=== PATIENT | female | born 1975 | race Caucasian/White ===

== ENCOUNTER 2024-10-20 16:19 | Emergency (ER) | payer OTHER, SELFPAY ==
[2024-10-20] MEDS ORDERED: METOCLOPRAMIDE 10 MG/2mL INJ ONE (17:03)
[2024-10-20] MEDS ORDERED: KETOROLAC 30 MG/ML INJ ONE (17:03)
[2024-10-20] MEDS ORDERED: DIPHENHYDRAMINE 50 MG/ML VIAL ONE (17:03)
[2024-10-20] MEDS ORDERED: NA CHLORIDE 0.9% 1,000 ML ONE (17:03)
[2024-10-20] MEDS ORDERED: NA CHLORIDE 0.9% 50 ML ONE (17:03)
--- NOTE | 2024-10-20 17:44 | RAD REPORT ---
EXAM: CT Head Brain Wo Cont HISTORY: HEADACHE COMPARISON: None TECHNIQUE: Multiple contiguous axial images were obtained for a CT of the brain without contrast. Sag ittal and coronal reformats were performed. One or more of the following dose reduction techniques were used: Automated exposure control, adjus tment of the mA and kV according to patient size, and iterative reconstruction. Unless otherwise specified, incidental findings do not require dedicated imaging follow-up. FINDINGS: No evidence of hydrocephalus, intracranial hemorrhage, or extra-axial fluid collection. The brain is normal in morphology. The calvarium is intact. The visualized paranasal sinuses show mild scattered inflammatory mucosal th ickening. Mastoid air cells are essentially clear. IMPRESSION: No evidence of acute intracranial abnormality.
--- NOTE | 2024-10-20 17:58 | EDPHYS ---
Physician Documentation [facility] Name: Zuri Paz Age: 49 yrs Sex: Female : 1975 Arrival Date: 10/20/2024 Time: 16:19 Bed 16 Private MD: ED Physician Robbie Cruz HPI: 10/20 17:04 This 49 yrs old Female presents to ER via Ambulatory with complaints of Migraine. sb4 17:04 Patient reports a migraine that began about 3 days ago. She states that it is not sb4 getting better despite using sumatriptan. She does report a history of migraines, gets them every few months. States this feels like her prior migraines but is just more severe. Reports associated sensitivity to light and noise. Feels nauseated, has not vomited. No dizziness or blurry vision. Historical: - Allergies: 16:44 No Known Allergies; cm10 - PMHx: 16:44 Migraine; cm10 - Immunization history:: Adult Immunizations up to date. - Infectious Disease History:: Denies. - Social history:: Smoking status: Patient reports the use of cigarette tobacco products, smokes one-half pack cigarettes per day. ROS: 17:04 Constitutional: Negative for fever, chills, and weight loss, sb4 17:04 Neuro: Positive for headache, 17:04 All other systems are negative, Exam: 17:04 Head/Face: Normocephalic, atraumatic. Eyes: Extra-ocular motions intact. Periorbital sb4 areas with no swelling, redness, or edema. ENT: Mucous membranes moist. Cardiovascular: Regular rate and rhythm with a normal S1 and S2. Respiratory: No increased work of breathing, no retractions or nasal flaring. Skin: Warm, dry with normal turgor. Normal color with no rashes, no lesions, and no evidence of cellulitis. MS/ Extremity: Pulses equal, no cyanosis. Neurovascular intact. Full, normal range of motion. Neuro: Awake and alert, GCS 15, oriented to person, place, time, and situation. Motor strength 5/5 in all extremities. Sensory grossly intact. 17:04 Constitutional: The patient appears alert, awake, in obvious pain, uncomfortable, Vital Signs: 16:43 BP 170 / 116; Pulse 96; Resp 19; Temp 97.4(TE); Pulse Ox 100% on R/A; Weight 63.5 kg; cm10 Height 5 ft. 1 in. ; Pain 10/10; 17:30 BP 149 / 100; Pulse 84; Resp 16; Pulse Ox 100% ; db 18:00 BP 138 / 101; Pulse 92; Resp 16; Pulse Ox 99% ; db 16:43 Body Mass Index 26.45 (63.50 kg, 154.94 cm) cm10 16:43 Pain Scale: Adult cm10 Anaya Coma Score: 17:47 Eye Response: spontaneous(4). Motor Response: obeys commands(6). Verbal Response: sb4 oriented(5). Total: 15. MDM: 16:45 Medical Screening Exam initiated sb4 17:47 Data reviewed: vital signs, nurses notes, radiologic studies, and as a result, I will sb4 discharge patient. Counseling: I had a detailed discussion with the patient and/or guardian regarding the historical points, exam findings, and any diagnostic results supporting the discharge/admit diagnosis, the presence of at least one elevated blood pressure reading (>120/80) during this emergency department visit, radiology results, the need for outpatient follow up, for definitive care, to return to the emergency department if symptoms worsen or persist or if there are any questions or concerns that arise at home. 10/20 16:45 Order name: Head Brain Wo Cont CT; Complete Time: 17:45 sb4 10/20 16:45 Order name: IV Start; Complete Time: 17:22 sb4 Administered Medications: 17:12 Drug: NS 0.9% IV 1000 ml IV at 1000 ml once; to be given as a bolus over 60 minutes db Route: IV; Rate: 1000 ml; Site: left antecubital; 18:16 Follow up: Response: No adverse reaction; IV Status: Completed infusion; IV Intake: db 1000ml 17:12 Drug: Ketorolac IVP 15 mg IVP once Route: IVP; Site: left antecubital; db 18:17 Follow up: Response: No adverse reaction db 17:12 Drug: metoCLOPramide IVP 10 mg IVP once; over 1 to 2 minutes Route: IVP; Site: left db antecubital; 18:17 Follow up: Response: No adverse reaction db 17:12 Drug: diphenhydrAMINE IVP 25 mg IVP once Route: IVP; Site: left antecubital; db 18:16 Follow up: Response: No adverse reaction db Disposition: 18:56 Co-signature as Attending Physician, Robbie Cruz MD I reviewed the patient's care rn provided by the Advanced Practice Provider and agree with the diagnosis and treatment plan. Disposition Summary: 10/20/24 17:57 Discharge Ordered Notes: Location: Home sb4 Problem: new sb4 Symptoms: have improved sb4 Condition: Stable sb4 Diagnosis - Migraine without aura, not intractable sb4 Followup: sb4 - With: Emergency Department - When: As needed - Reason: Trouble breathing, Worsening of condition Discharge Instructions: - Discharge Summary Sheet sb4 - Migraine Headache, [id number] sb4 Forms: - Patient Portal Instructions sb4 - Leadership Thank You Letter sb4 Signatures: Dispatcher [employer] EDRobbie Amaya MD MD rn Benton, Danielle RN RN Karena Toure PA-C PASandra sb4 Sara Vasquez RN RN cm10 Corrections: (The following items were deleted from the chart) 16:45 16:44 Social history: Smoking status: Patient reports the use of cigarette tobacco cm10 products, denies chronic smoking, but will smoke occasionally, cm10
--- NOTE | 2024-10-20 17:58 | ER ---
Nurse's Notes [facility] Name: Zuri Paz Age: 49 yrs Sex: Female : 1975 Arrival Date: 10/20/2024 Time: 16:19 Bed 16 Private MD: Diagnosis: Migraine without aura, not intractable Presentation: 10/20 16:43 Chief complaint: Patient states: Migraine X2 days. Pt reports taking medication with no cm10 relief. Pt reports light sensitivity. Coronavirus screen: Client denies travel out of the [place] in the last 14 days. Ebola Screen: Patient denies travel to an Ebola-affected area in the 21 days before illness onset. No symptoms or risks identified at this time. Initial Sepsis Screen: Does the patient meet any 2 criteria? HR > 90 bpm. Does the patient have a suspected source of infection? No. Patient's initial sepsis screen is negative. Risk Assessment: Do you want to hurt yourself or someone else? Patient reports no desire to harm self or others. Onset of symptoms was October 20, 2024. 16:43 Method Of Arrival: Ambulatory cm10 16:43 Acuity: ALVARO 3 cm10 Triage Assessment: 16:45 General: Appears in no apparent distress. comfortable, Behavior is calm, cooperative, cm10 appropriate for age. Neuro: No deficits noted. Level of Consciousness is awake, alert, obeys commands, Oriented to person, place, time, situation, Appropriate for age. Respiratory: No deficits noted. Airway is patent Respiratory effort is even, unlabored, Respiratory pattern is regular, symmetrical. Historical: - Allergies: 16:44 No Known Allergies; cm10 - PMHx: 16:44 Migraine; cm10 - Immunization history:: Adult Immunizations up to date. - Infectious Disease History:: Denies. - Social history:: Smoking status: Patient reports the use of cigarette tobacco products, smokes one-half pack cigarettes per day. Screenin:24 [facility] ED Fall Risk Assessment (Adult) History of falling in the last 3 months, db including since admission No falls in past 3 months (0 pts) Confusion or Disorientation No (0 pts) Intoxicated or Sedated No (0 pts) Impaired Gait No (0 pts) Mobility Assist Device Used No (0 pt) Altered Elimination No (0 pt) Score/Fall Risk Level 0 - 2 = Low Risk Oriented to surroundings, Maintained a safe environment. Abuse screen: Denies threats or abuse. Denies injuries from another. Nutritional screening: No deficits noted. Tuberculosis screening: No symptoms or risk factors identified. Assessment: 17:10 Reassessment: Patient appears in no apparent distress at this time. Patient and/or db family updated on plan of care and expected duration. Pain level reassessed. Patient is alert, oriented x 3, equal unlabored respirations, skin warm/dry/pink. General: Appears in no apparent distress. uncomfortable, Behavior is calm, cooperative. Pain: Complains of pain in head. Neuro: Level of Consciousness is awake, alert, obeys commands, Oriented to person, place, time, situation, Reports headache. Respiratory: Airway is patent Respiratory effort is even, unlabored, Respiratory pattern is regular, symmetrical. 18:15 Reassessment: Patient appears in no apparent distress at this time. Patient and/or db family updated on plan of care and expected duration. Pain level reassessed. Patient is alert, oriented x 3, equal unlabored respirations, skin warm/dry/pink. Patient states feeling better. Patient states symptoms have improved. Vital Signs: 16:43 BP 170 / 116; Pulse 96; Resp 19; Temp 97.4(TE); Pulse Ox 100% on R/A; Weight 63.5 kg; cm10 Height 5 ft. 1 in. ; Pain 10/10; 17:30 BP 149 / 100; Pulse 84; Resp 16; Pulse Ox 100% ; db 18:00 BP 138 / 101; Pulse 92; Resp 16; Pulse Ox 99% ; db 16:43 Body Mass Index 26.45 (63.50 kg, 154.94 cm) cm10 16:43 Pain Scale: Adult cm10 Anaya Coma Score: 17:47 Eye Response: spontaneous(4). Motor Response: obeys commands(6). Verbal Response: sb4 oriented(5). Total: 15. ED Course: 16:22 Patient arrived in ED. ra3 16:23 Karena Steven PA-C is PHCP. sb4 16:23 Robbie Cruz MD is Attending Physician. sb4 16:44 Triage completed. cm10 16:45 Arm band placed on right wrist. Patient placed in an exam room, on a stretcher. cm10 16:[address] Head Brain Wo Cont CT In Process Unspecified. EDMS 17:12 Inserted saline lock: 20 gauge in left antecubital area, using aseptic technique. Blood db collected. Flushed with 10 mL NS. 17:22 Cristina Lindsey, RN is Primary Nurse. db 17:24 Patient has correct armband on for positive identification. Bed in low position. Call db light in reach. Side rails up X 1. Pulse ox on. NIBP on. Warm blanket given. Pillow given. 18:16 Provided Education on: DISCHARGE AND FOLLOWUP. db 18:16 No provider procedures requiring assistance completed. IV discontinued, intact, db bleeding controlled, No redness/swelling at site. Administered Medications: 17:12 Drug: NS 0.9% IV 1000 ml IV at 1000 ml once; to be given as a bolus over 60 minutes db Route: IV; Rate: 1000 ml; Site: left antecubital; 18:16 Follow up: Response: No adverse reaction; IV Status: Completed infusion; IV Intake: db 1000ml 17:12 Drug: Ketorolac IVP 15 mg IVP once Route: IVP; Site: left antecubital; db 18:17 Follow up: Response: No adverse reaction db 17:12 Drug: metoCLOPramide IVP 10 mg IVP once; over 1 to 2 minutes Route: IVP; Site: left db antecubital; 18:17 Follow up: Response: No adverse reaction db 17:12 Drug: diphenhydrAMINE IVP 25 mg IVP once Route: IVP; Site: left antecubital; db 18:16 Follow up: Response: No adverse reaction db Medication: 18:16 VIS not applicable for this client. db Intake: 18:16 IV: 1000ml; Total: 1000ml. db Outcome: 17:57 Discharge ordered by MD. diaz 18:16 Discharged to home ambulatory, with family, db 18:16 Condition: stable 18:16 Discharge instructions given to patient, family, Instructed on discharge instructions, follow up and referral plans. 18:17 Patient left the ED. db Signatures: Dispatcher [employer] EDPA Cristina Lindsey, RN RN Karena Toure, PA-C PASebastianC [email or web address] Sara Vasquez RN RN cm10 Romelia Lucero ra3 Corrections: (The following items were deleted from the chart) 16:45 16:44 Social history: Smoking status: Patient reports the use of cigarette tobacco cm10 products, denies chronic smoking, but will smoke occasionally, cm10
[2024-10-21 17:01] VITALS: BP 138/101; TEMP 97.4; O2SAT 99
== END 2024-10-20 18:17 | disposition home or self-care (01) ==
LOC: ER 16:19
DX: G43.009 Migraine without aura, not intractable, without status migrainosus (principal)
CPT/HCPCS: 96361; 70450; 96375; 96374; 99284; J2765; J1200; J7030

== ENCOUNTER 2025-01-25 16:11 | Emergency (ER) | payer OTHER ==
--- OUTSIDE RECORDS SUMMARY | 2025-01-25 16:15 | XMS REPORT | Continuity of Care Document ---
Author Name Unknown Address [address] [place] [address] [address] [place] [address] [facility] Address [address] [facility]. [address] [place] [address] Care Team Providers Care Architectural Drafter Name Role Phone Robyn Dean Attending Clinician Unavail able TABITHA ORLANDO Attending Clinician Unavailable FORD GARAZ Attending Clinician Unavailab IRA Correa Attending Clinician Unavailab HUE Mayorga Attending Clinician Unavailable MALINA Attending Clinician Unavailable MD SILVINA Attending Clinician Unavailab MICHAEL Hogue Attending Clinician UnavailHUGH Rodriguez Attending Clinician CHELSI Leonardo Attending Clinician Unavailab MISSY Fish Attending Clinician Unavailable JOSE NEGRON Attending Clinician Unavailable CONY BROWN Attending Clinician Unavailab le LAB90 Attending Clinician Unavailable [id number] Attending Clinician Unavailable 39, HOLTER Attending Clinician Unavailable Payers Payer Name Policy Type Policy Number Effective Date Expirati on Date Source [employer] GIOV[employer]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[employer] 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 9 [id number] 2023 00:00:00 Problems Condition Name Condition Details Condition Category Status Onset Date Resolution Date Last Treatment Date Treating Clinician Comments Source Mild major depression Mild major depression Disease Active 11-22 00:00: 00 Beckie Seybold - Externa l Palpitatio ns Palpitatio ns Disease Active 11-08 00:00: 00 Beckie Seybold - Externa l Current every day smoker Current every day smoker Disease Active 11-08 00:00: 00 Beckie Seybold - Externa l Primary hypertensi on Primary hypertensi on Disease Active 11-08 00:00: 00 Becike Pollarda l Social History Social Habit Start Date Stop Date Quantity Comments Source Sexual orientation 2022-11-08 05:43:24 Heterosexual (finding) Beckie Murphy - External History of tobacco use Cigarette Smoker Beckie vazquez - External Alcoholic beverage intake 2024-04-30 00:00:00 2024-04-30 00:00:00 2 /d Beckie Murphy - External Alcohol intake 2023-12-07 00:00:00 2023-12-07 00:00:00 2 /d Beckie Murphy - External History of Social function 2022-12-15 00:00:00 2022-12-15 00:00:00 Beckie Murphy - External Tobacco use and exposure 2022-11-24 00:00:00 2022-11-24 00:00:00 Smokeless tobacco non-user Beckie Murphy - External Sex [birth year] at 1975 00:00:00 1975 00:00:00 F Beckie Murphy - External Smoking Status Start Date Stop Date Source Smokes tobacco daily 2022-11-24 00:00:00 Beckie Murphy - External Medications Ordered Medication Name Filled Medication Name Start Date Stop Date Current Medication? Ordering Clinician Indication Dosage Frequency Signature (SIG) Comments Components Source Metronidazo le 500 MG oral Tablet 04-30 00:00: 00 Yes [id number] 500mg Q.5D Take 1 tablet (500 mg total) by mouth 2 times daily. Beckie mccabe Diclofenac Sodium CR 100 MG oral TABLET SR 24 HR 03-10 00:00: 00 Yes One QD PRN, do not combine with other antiinflam matories, take with food. Beckie mccabe Naratriptan HCl 1 MG oral Tablet 03-10 00:00: 00 Yes 1 mg at onset of headache, may repeat in 4 hours if needed, up to 2 pills pr 24 hours. Beckie mccabe Magnesium 500 MG oral Tablet 03-10 00:00: 00 Yes One QHS. Beckie mccabe Sumatriptan Succinate 100 MG oral Tablet 3-10 00:00: 00 03-10 00:00 :00 No [id number] 100mg Take 1 tablet (100 mg total) by mouth once as needed for migraine (May repeat in 2 hours if unresolved . Do not exceed 200 mg in 24 hours.). Beckie mccabe Sumatriptan Succinate 100 MG oral Tablet 2-15 00:00: 00 Yes [id number] 100mg Take 1 tablet (100 mg total) by mouth once as needed for migraine (May repeat in 2 hours if unresolved . Do not exceed 200 mg in 24 hours.). Beckie mccabe Ondansetron HCl 4 MG oral Tablet 2-15 00:00: 00 Yes [id number] 4mg [id number] 3D Take 1 tablet (4 mg total) by mouth every 8 hours as needed for nausea. Beckie mccabe Diclofenac Sodium 75 MG oral Tablet Delayed Response 5-18 00:00: 00 11-22 00:00 :00 No TAKE 1 TABLET BY MOUTH TWICE A DAY Beckie mccabe NYSTATIN EX 3-16 00:00: 00 11-22 00:00 :00 No SWISH AND SPIT 5ML BY MOUTH EVERY 4 HOURS NEEDED Beckie mccabe Maalox, Lidocaine Viscous HCl, Nystatin (Magic Mouthwash-E qual Ratio) 3-14 00:00: 00 11-22 00:00 :00 No [id number] 07 5mL Q4H Swish and spit 5 mL every 4 hours as needed Beckie mccabe Ivabradine HCl 5 MG oral Tablet 3-11 00:00: 00 11-22 00:00 :00 No 1{tbl} Take 1 tablet by mouth 2 times daily Beckie mccabe hydroCHLORO thiazide 12.5 MG oral Capsule 0 3-10 00:00: 00 Yes [id number] 12.5mg Take 1 capsule (12.5 mg total) by mouth daily Beckie mccabe Maalox, Lidocaine Viscous HCl, Nystatin (Magic Mouthwash-E qual Ratio) 3- 00:00: 00 Yes [id number] 07 5mL Q4H Swish and spit 5 mL every 4 hours as needed Beckie mccabe hydroCHLORO thiazide 12.5 MG oral Capsule 3- 00:00: 00 12-15 00:00 :00 No [id number] TAKE 1 CAPSULE BY MOUTH EVERY DAY Beckie mccabe methylPREDN ISolone (Medrol) 4 MG oral Tablet Therapy Pack 11-21 00:00: 00 Yes 1{olga} Take 1 olga by mouth See Admin Instructio ns Use as directed. Beckie mccabe Diclofenac Sodium 75 MG oral Tablet Delayed Response 11-21 00:00: 00 Yes 75mg Take 1 tablet (75 mg total) by mouth 2 times daily Beckie mccabe methylPREDN ISolone (Medrol) 4 MG oral Tablet Therapy Pack 11-21 00:00: 00 11-22 00:00 :00 No 1{olga} Take 1 olga by mouth See Admin Instructio ns Use as directed. Beckie mccabe Ciprofloxac in HCl (Cipro) 500 MG oral Tablet 11-14 00:00: 00 11-22 05:59 :00 No [id number] 500mg Take 1 tablet (500 mg total) by mouth 2 times daily for 7 days Beckie mccabe Sumatriptan Succinate (Imitrex) 25 MG oral Tablet 2-04 00:00: 00 11-22 00:00 :00 No [id number] 25mg Take 1 tablet (25 mg total) by mouth every 2 hours as needed for migraine (Do) Not to exceed 2 doses in 24 hours. Beckie mccabe Nitrofurant oin Monohyd Macro (Macrobid) 100 MG oral Capsule - 00:00: 00 Yes [id number] 100mg Take 1 capsule (100 mg total) by mouth 2 times daily Beckie mccabe Sumatriptan Succinate (Imitrex) 25 MG oral Tablet 11-08 11:02: 25 Yes 25mg Take 25 mg by mouth every 2 hours as needed for migraine Beckie mccabe hydroCHLORO thiazide 12.5 MG oral Capsule 11-08 00:00: 00 Yes [id number] 12.5mg Take 1 capsule (12.5 mg total) by mouth daily Beckie mccabe Immunizations Ordered Immunization Name Filled Immunization Name Date Status Comments Source MMR- Measles, Mumps, Rubella 2019-03-23 00:00:00 Completed Beckie Cartagenaold - External MMR- Measles, Mumps, Rubella 2019-03-23 00:00:00 Completed Beckie Cartagenaold - External MMR- Measles, Mumps, Rubella 2019-03-23 00:00:00 Completed Beckie Banksybold - External Rho D 2019-03-22 00:00:00 Completed Beckie Murphy - External Tdap- (Boostrix, Adacel) 2019-03-22 00:00:00 Completed Beckie Cartagenaold - External Rho D 2019-03-22 00:00:00 Completed Beckie Cartagenaold - External Tdap- (Boostrix, Adacel) 2019-03-22 00:00:00 Completed Beckie Banksybold - External Rho D 2019-03-22 00:00:00 Completed Beckie Banksybold - External Tdap- (Boostrix, Adacel) 2019-03-22 00:00:00 Completed Beckie Murphy - External Rho D Unknown Completed Beckie ferrell - External MMR- Measles, Mumps, Rubella Unknown Completed Beckie Banksybol d - External Tdap- (Boostrix, Adacel) Unknown Completed Beckie Cratagenaold - External Rho D Unknown Completed Beckie Greenfield bold - External MMR- Measles, Mumps, Rubella Unknown Completed Beckie Seybol d - External Tdap- (Boostrix, Adacel) Unknown Completed Beckie Banksybold - External Rho D Unknown Completed Beckie Greenfield bold - External MMR- Measles, Mumps, Rubella Unknown Completed Beckie Banksybol d - External Tdap- (Boostrix, Adacel) Unknown Completed Beckie Cartagenaold - External Rho D Unknown Completed Beckie Greenfield bold - External MMR- Measles, Mumps, Rubella Unknown Completed Beckie Solis d - External Tdap- (Boostrix, Adacel) Unknown Completed Beckie Murphy - External Vital Signs Vital Name Observation Time Observation Value Comments S ourchase Systolic blood pressure 2024-03-10 18:42:00 134 mm[Hg] did retake BP on machine. per patient states she did not take BP medication today 03-10-2024. Beckie Banksybold - External Diastolic blood pressure 2024-03-10 18:42:00 92 mm[Hg] did retake BP on machine. per patient states she did not take BP medication today 03-10-2024. Beckie Banksybold - External Heart rate 2024-03-10 18:42:00 103 /min Beckie Banksybold - External Respiratory rate 2024-03-10 18:38:00 16 /min Beckie Banksybold - External Body height 2024-03-10 18:38:00 154.9 cm Beckie Banksybold - External Body weight 2024-03-10 18:38:00 63.685 kg Beckie Banksybold - External BMI 2024-03-10 18:38:00 26.53 kg/m2 Beckie Banksybold - External Systolic blood pressure 2023-12-07 16:23:00 138 mm[Hg] Beckie Seybold - External Diastolic blood pressure 2023-12-07 16:23:00 88 mm[Hg] Beckie Banksybold - External Heart rate 2023-12-07 16:23:00 88 /min Beckie Banksybold - External Body temperature 2023-12-07 16:23:00 36.89 Niki Beckie Seybold - External Respiratory rate 2023-12-07 16:23:00 22 /min Beckie Banksybold - External Body height 2023-12-07 16:23:00 154.9 cm Beckie Banksybold - External Body weight 2023-12-07 16:23:00 65.681 kg Beckie Seybold - External BMI 2023-12-07 16:23:00 27.36 kg/m2 Beckie Banksybold - External Systolic blood pressure 2023-11-22 14:50:00 144 mm[Hg] Beckie Seybold - External Diastolic blood pressure 2023-11-22 14:50:00 94 mm[Hg] Beckie Seybold - External Heart rate 2023-11-22 14:50:00 98 /min Beckie Seybold - External Body temperature 2023-11-22 14:50:00 36 Niki Beckie Seybold - External Respiratory rate 2023-11-22 14:50:00 14 /min Beckie Seybold - External Body height 2023-11-22 14:50:00 154.9 cm Beckie Seybold - External Body weight 2023-11-22 14:50:00 65.318 kg Beckie Seybold - External BMI 2023-11-22 14:50:00 27.21 kg/m2 Beckie Seybold - External Systolic blood pressure 2022-12-15 20:36:00 134 mm[Hg] Beckie Seybold - External Diastolic blood pressure 2022-12-15 20:36:00 90 mm[Hg] Beckie Seybold - External Heart rate 2022-12-15 20:36:00 100 /min Beckie Seybold - External Body temperature 2022-12-15 20:36:00 37.06 Niki Beckie Seybold - External Body height 2022-12-15 20:36:00 154.9 cm Beckie Seybold - External Body weight 2022-12-15 20:36:00 61.689 kg Beckie Seybold - External BMI 2022-12-15 20:36:00 25.70 kg/m2 Beckie Seybold - External Oxygen saturation in Arterial blood by Pulse oximetry 2022-12-15 20:36:00 97 /min Beckie Seybold - External Body height 2022-11-21 19:46:00 154.9 cm Beckie Seybold - External Body weight 2022-11-21 19:46:00 63.504 kg Beckie Seybold - External BMI 2022-11-21 19:46:00 26.45 kg/m2 Beckie Seybold - External Systolic blood pressure 2022-11-08 16:54:00 148 mm[Hg] Beckie Seybold - External Diastolic blood pressure 2022-11-08 16:54:00 92 mm[Hg] Beckie Seybold - External Heart rate 2022-11-08 16:54:00 121 /min Beckie Murphy - External Body temperature 2022-11-08 16:54:00 36.39 Niki Beckie Murphy - External Respiratory rate 2022-11-08 16:54:00 14 /min Beckie Murphy - External Body height 2022-11-08 16:54:00 154.9 cm Beckie Murphy - External Body weight 2022-11-08 16:54:00 63.504 kg Beckie Murphy - External BMI 2022-11-08 16:54:00 26.45 kg/m2 Beckie Murphy - External Encounters Start Date/Time End Date/Time Encounter Type Admission Type Attending [facility] Care Department Encounter ID Source 2024-12-30 14:01:00 Outpatient Robyn Dean [facility] [id number] [facility] 2024-12-04 09:43:01 Outpatient Robyn Dean [facility] [id number] [facility] 2024-07-11 00:00:00 2024-07-11 00:00:00 Outpatient TABITHA ORLANDO [id number] [facility] 2024-06-25 00:00:00 2024-06-25 00:00:00 Outpatient TABITHA ORLANDO [id number] [facility] 2024-05-16 11:00:00 2024-05-16 11:00:00 Outpatient FORD GARZA [id number] [facility] 2024-05-15 14:00:00 2024-05-15 14:00:00 Outpatient IRA DE SATNIAGO [id number] [facility] 2024-04-30 12:15:00 2024-04-30 12:15:00 Outpatient HUE [facility]ERNÁNDEZ [id number] [facility]24-04-30 00:00:00 2024-04-30 00:00:00 Outpatient IRA DE SANTIAGO [id number] [facility] 2024-04-29 00:00:00 2024-04-29 00:00:00 Outpatient MALINA BECKIE MCKINNON [id number] [facility] 2024-03-10 14:15:00 2024-03-10 14:15:00 Outpatient FORD GARZA BECKIE MCKINNON [id number] [facility] 2024-02-13 00:00:00 2024-02-13 00:00:00 Outpatient MD BECKIE NARANJO [id number] [facility] 2024-01-07 09:15:00 2024-01-07 09:15:00 Outpatient FORD GARZA BECKIE MCKINNON [id number] [facility] 2023-12-21 11:15:00 2023-12-21 11:15:00 Outpatient ALIREZACRISTOPHERMICHAEL [place] [id number] [facility]ie [facility] 2023-12-20 09:00:00 2023-12-20 09:00:00 [facility]patient IRA [facility]AG[facility] [id number] [facility]23-12-13 00:00:00 2023-12-13 00:00:00 Outpatient IRA DE SANTIAGO [id number] [facility] 2023-12-10 13:00:00 2023-12-10 13:00:00 Outpatient BECKIE MCKINNON [id number] [facility] 2023-12-07 10:30:00 2023-12-07 10:30:00 Outpatient MICHAEL KAUR [id number] [facility] 2023-12-07 00:00:00 2023-12-07 00:00:00 Outpatient IRA DE SANTIAGO [id number] [facility] 2023-12-07 00:00:00 2023-12-07 00:00:00 Outpatient MD BECKIE NARANJO [id number] [facility] 2023-11-26 09:30:00 2023-11-26 09:30:00 Outpatient HUGH DENTON [id number] [facility] 2023-11-23 15:15:00 2023-11-23 15:15:00 Outpatient BECKIE MCKINNON [id number] [facility] 2023-11-22 09:30:00 2023-11-22 09:30:00 Outpatient IRA DE SANTIAGO BECKIE MCKINNON [id number] [facility] 2023-11-13 15:30:00 2023-11-13 15:30:00 Outpatient HUGH DENTON BECKIE MCKINNON [id number] [facility] 2023-09-12 00:00:00 2023-09-12 00:00:00 Outpatient TABITHA ORLANDO BECKIE MCKINNON [id number] [facility] 2023-07-02 13:00:00 2023-07-02 13:00:00 Outpatient CHELSI VILLAFANA [id number] [facility] 2023-03-15 14:20:00 2023-03-15 14:20:00 Outpatient CHELSI VILLAFANA [id number] [facility] 2023-02-22 00:00:00 2023-02-22 00:00:00 Outpatient MISSY DURBIN [id number] [facility] 2023-02-15 15:30:00 2023-02-15 15:30:00 Outpatient JOSE NEGRON [id number] [facility] 2023-01-09 14:20:00 2023-01-09 14:20:00 Outpatient MISSY DURBIN [id number] [facility] 2023-01-04 00:00:00 2023-01-04 00:00:00 Outpatient JOSE NEGRON [id number] [facility] 2022-12-25 00:00:00 2022-12-25 00:00:00 Outpatient BECKIE MCKINNON [id number] [facility] 2022-12-19 00:00:00 2022-12-19 00:00:00 Outpatient JOSE NEGRON [id number] [facility] 2022-12-19 00:00:00 2022-12-19 00:00:00 Outpatient CONY BROWN [id number] Beckie Seybgeorge 2022-12-18 00:00:00 2022-12-18 00:00:00 Outpatient JOSE NEGRON BECKIE MCKINNON [id number] Beckie Seybgeorge 2022-12-17 00:00:00 2022-12-17 00:00:00 Outpatient MIGDALIA JOSE BECKIE MCKINNON [id number] Beckie [facility] 2022-12-16 00:00:00 2022-12-16 00:00:00 Outpatient CONY BROWN [id number] [facility] 2022-12-15 15:15:00 2022-12-15 15:15:00 Outpatient LAB90 BECKIE MCKINNON [id number] [facility] 2022-12-15 14:30:00 2022-12-15 14:30:00 Outpatient JOSE NEGRON BECKIE MCKNINON [id number] [facility] 2022-12-07 13:30:00 2022-12-07 13:30:00 Outpatient TRED4Freddy BECKIE MCKINNON [id number] Beckie Seybold 2022-12-06 14:00:00 2022-12-06 14:00:00 Outpatient TRED4Freddy BECKIE MCKINNON [id number] [facility] 2022-12-06 13:00:00 2022-12-06 13:00:00 Outpatient BECKIE MCKINNON [id number] [facility] 2022-12-05 00:00:00 2022-12-05 00:00:00 Outpatient JOSE NEGRON BECKIE MCKINNON [id number] Beckie Seybold 2022-11-24 14:00:00 2022-11-24 14:00:00 Outpatient 41, DUSTINTER BECKIE MCKINNON [id number] Beckie Seybold 2022-11-24 13:40:00 2022-11-24 13:40:00 Outpatient CONY BROWN [id number] Beckie Seybold 2022-11-21 13:40:00 2022-11-21 13:40:00 Outpatient MISSY DURBIN [id number] Beckie Seybold 2022-11-14 00:00:00 2022-11-14 00:00:00 Outpatient JOSE NEGRON BECKIE BECKIE [id number] Beckie Murphy 2022-11-10 00:00:00 2022-11-10 00:00:00 Outpatient JOSE NEGRON BECKIE BECKIE [id number] Beckie Banksfarzanehgeorge 2022-11-10 00:00:00 2022-11-10 00:00:00 Outpatient JOSE NEGRON BECKIE BECKIE [id number] Beckie Murphy 2022-11-09 00:00:00 2022-11-09 00:00:00 Outpatient JOSE NEGRON BECKIE MCKINNON [id number] Beckie Murphy 2022-11-08 12:00:00 2022-11-08 12:00:00 Outpatient AMAURY BECKIE MCKINNON [id number] Beckie eduardo 2022-11-08 11:00:00 2022-11-08 11:00:00 Outpatient JOSE NEGRON BECKIE MCKINNON [id number] Beckie Jeffrey 2022-11-08 00:00:00 2022-11-08 00:00:00 Outpatient BECKIE MCKINNON [id number] Beckie farzanehgeorge 2022-11-08 00:00:00 2022-11-08 00:00:00 Outpatient MD BECKIE NARANJO [id number] Beckie Murphy 2022-11-08 00:00:00 2022-11-08 00:00:00 Outpatient MD BECKIE NARANJO [id number] Beckie Murphy Notes Date/Time Note Provider Source 2024-03-10 13:44:25 Chief Complaint Patient presents with Headache Year old female patient states she have a Hx of Migraines at least about 5 to 6 years. States constant Migraine headaches, nausea and feels sick to her stomach, no noise or lights on for about 6 months. Rosalba Hart CMA I [facility] 2023-11-22 08:56:50 Chief Complaint Patient presents with Headache She has a history of migraines for the past 20 years. She states that they have become worse over the past month. She has been having to double her Sumatriptan with no relief. Her headaches seem to be all over. Some nausea. No vomiting. No blurred vision. Lacy Turner MA II [facility]
[2025-01-25] MEDS ORDERED: HYDROCODONE/APAP 7.5/325 MG TAB ONE (17:30)
--- NOTE | 2025-01-25 17:30 | EDPHYS ---
Physician Documentation [facility] Name: Zuri Paz Age: 49 yrs Sex: Female : 1975 Arrival Date: 01/25/2025 Time: 16:11 Bed 11 Private MD: SHANA Physician Bandar Gaitan HPI: 01/25 17:23 This 49 yrs old Female presents to ER via Ambulatory with complaints of Arm teri Pain. 17:23 The patient or guardian complains of decreased range of motion, injury, pain, that is teri acute. The complaints affect the anterior aspect of right shoulder and posterior aspect of right shoulder. Context: The problem was sustained outdoors. Treatment prior to arrival includes: no previous treatment. Modifying factors: The symptoms are alleviated by remaining still, the symptoms are aggravated by movement, lifting weight, bending arm. Associated signs and symptoms: Pertinent positives: pain. Severity of symptoms: At their worst the symptoms were moderate, in the emergency department the symptoms are unchanged. The patient has not experienced similar symptoms in the past. Historical: - Allergies: 16:28 No Known Allergies; ll1 - PMHx: 16:28 Migraine; GERD; Hypertensive disorder; ll1 - PSHx: 16:28 hand surgery; ll1 - Immunization history:: Adult Immunizations up to date. - Social history:: Smoking status: Patient denies any tobacco usage or history of. - Family history:: not pertinent. ROS: 17:24 Constitutional: Negative for fever, chills, and weight loss, Eyes: Negative for injury, teri pain, redness, and discharge, ENT: Negative for injury, pain, and discharge, Neck: Negative for injury, pain, and swelling, Cardiovascular: Negative for chest pain, palpitations, and edema, Respiratory: Negative for shortness of breath, cough, wheezing, and pleuritic chest pain, Abdomen/GI: Negative for abdominal pain, nausea, vomiting, diarrhea, and constipation, Back: Negative for injury and pain, : Negative for injury, bleeding, discharge, and swelling, Skin: Negative for injury, rash, and discoloration, Neuro: Negative for headache, weakness, numbness, tingling, and seizure, Psych: Negative for depression, anxiety, suicide ideation, homicidal ideation, and hallucinations, Allergy/Immunology: Negative for hives, rash, and allergies, Endocrine: Negative for neck swelling, polydipsia, polyuria, polyphagia, and marked weight changes, Hematologic/Lymphatic: Negative for swollen nodes, abnormal bleeding, and unusual bruising, 17:24 MS/extremity: Positive for injury or acute deformity, decreased range of motion, pain, tenderness, of the anterior aspect of right shoulder and posterior aspect of right shoulder, Exam: 17:24 Constitutional: This is a well developed, well nourished patient who is awake, alert, teri and in no acute distress. Head/Face: Normocephalic, atraumatic. Eyes: Pupils equal round and reactive to light, extra-ocular motions intact. Lids and lashes normal. Conjunctiva and sclera are non-icteric and not injected. Cornea within normal limits. Periorbital areas with no swelling, redness, or edema. ENT: Nares patent. No nasal discharge, no septal abnormalities noted. Tympanic membranes are normal and external auditory canals are clear. Oropharynx with no redness, swelling, or masses, exudates, or evidence of obstruction, uvula midline. Mucous membranes moist. Neck: Trachea midline, no thyromegaly or masses palpated, and no cervical lymphadenopathy. Supple, full range of motion without nuchal rigidity, or vertebral point tenderness. No Meningismus. Chest/axilla: Normal chest wall appearance and motion. Nontender with no deformity. No lesions are appreciated. Cardiovascular: Regular rate and rhythm with a normal S1 and S2. No gallops, murmurs, or rubs. Normal PMI, no JVD. No pulse deficits. Respiratory: Lungs have equal breath sounds bilaterally, clear to auscultation and percussion. No rales, rhonchi or wheezes noted. No increased work of breathing, no retractions or nasal flaring. Abdomen/GI: Soft, non-tender, with normal bowel sounds. No distension or tympany. No guarding or rebound. No evidence of tenderness throughout. Back: No spinal tenderness. No costovertebral tenderness. Full range of motion. Skin: Warm, dry with normal turgor. Normal color with no rashes, no lesions, and no evidence of cellulitis. Neuro: Awake and alert, GCS 15, oriented to person, place, time, and situation. Cranial nerves II-XII grossly intact. Motor strength 5/5 in all extremities. Sensory grossly intact. Cerebellar exam normal. Normal gait. Psych: Awake, alert, with orientation to person, place and time. Behavior, mood, and affect are within normal limits. 17:24 Musculoskeletal/extremity: ROM: limited active range of motion due to pain, limited passive range of motion due to pain, in the anterior aspect of right shoulder and posterior aspect of right shoulder, Circulation is intact in all extremities. Sensation intact. Compartment Syndrome exam of affected extremity: is normal. Vital Signs: 16:29 BP 140 / 98; Pulse 108; Resp 17; Temp 98; Pulse Ox 100% on R/A; Weight 61.23 kg; Height ll1 5 ft. 1 in. ; Pain 8/10; 16:29 Body Mass Index 25.51 (61.23 kg, 154.94 cm) ll1 16:29 Pain Scale: Adult ll1 MDM: 16:41 Medical Screening Exam initiated teri 17:26 Differential diagnosis: dislocation, closed fracture, contusion, tendonitis. Data teri reviewed: vital signs, nurses notes, radiologic studies, plain films. Consideration of Admission/Observation Escalation of care including admission/observation considered. I considered the following discharge prescriptions or medication management in the emergency department Medications were administered in the Emergency Department. See MAR. Independent interpretation of the following test(s) in the Emergency Department X-Ray: My interpretation is RIGHT SHOULDER. Test considered but Not performed: Labs: NO LABS. Historians other than the Patient: Spouse/Significant Other: INFORMED. Care significantly affected by the following chronic conditions: Hypertension, MIGRAINES, GERD. 01/25 16:40 Order name: Shoulder Right (2 View) XRAY sb4 01/25 16:42 Order name: Sling; Complete Time: 16:48 teri Administered Medications: 17:38 Drug: Hydrocodone-Acetaminophen PO (7.5 mg-325 mg) 1 tabs PO once Route: PO; jb4 17:46 Follow up: Response: Medication administered at discharge. jb4 Disposition Summary: 01/25/25 17:29 Discharge Ordered Notes: Location: Home teri Problem: new teri Symptoms: have improved teri Condition: Stable teri Diagnosis - Pain in right shoulder teri - Injury of muscle(s) and tendon(s) of the rotator cuff of shoulder teri - Injury of other muscles, fascia and tendons at shoulder and upper arm level teri Followup: teri - With: Private Physician - When: 2 - 3 days - Reason: Recheck today's complaints, Continuance of care, Re-evaluation by your physician Followup: [facility] - With: Blake Mathews MD - When: 2 - 3 days - Reason: Recheck today's complaints, Continuance of care, Re-evaluation by your physician Discharge Instructions: - Discharge Summary Sheet [facility] - Joint Pain teri - Musculoskeletal Pain teri - Shoulder Pain [facility] - How to Use Cold Therapy, [id number] [facility] - Shoulder Pain, [id number] [facility] Forms: - Medication Reconciliation Form [facility] - Antibiotic Education [facility] - Prescription Opioid Use [facility] - Patient Portal Instructions [facility] - Leadership Thank You Letter [facility] Prescriptions: - Diclofenac Sodium 75 mg Oral tablet, delayed release (enteric coated) - take 1 tablet ORAL route 2 times per day; 20 tablet; Refills: 0, Product [facility] Selection Permitted - methocarbamol 750 mg Oral tablet - take 1 tablet ORAL route every 6 hours PRN; 28 tablet; Refills: 0, Product [facility] Selection Permitted - Tylenol-Codeine #3 300mg-30mg Oral tablet - take 2 tablets ORAL route every 6 hours As needed; 20 tablet; Refills: 0, [facility] Product Selection Permitted Signatures: Dispatcher [employer] EDBandar Orellana MD MD cha Bryson, James, RN RN jb4 Karen Allen RN RN ll1 Corrections: (The following items were deleted from the chart) 17:38 17:24 Ice pack ordered. teri jb4
--- NOTE | 2025-01-25 17:30 | ER ---
Nurse's Notes [facility] Name: Zuri Paz Age: 49 yrs Sex: Female : 1975 Arrival Date: 01/25/2025 Time: 16:11 Bed 11 Private MD: Diagnosis: Pain in right shoulder;Injury of muscle(s) and tendon(s) of the rotator cuff of shoulder;Injury of other muscles, fascia and tendons at shoulder and upper arm level Presentation: 01/25 16:29 Chief complaint: Patient states: [place] a pop to R shoulder when jumping out of a tree ll1 last night. Pain and limited movement since. Coronavirus screen: Client denies travel out of the [place] in the last 14 days. At this time, the client does not indicate any symptoms associated with coronavirus-19. Ebola Screen: Patient denies travel to an Ebola-affected area in the 21 days before illness onset. Initial Sepsis Screen: Does the patient meet any 2 criteria? No. Patient's initial sepsis screen is negative. Does the patient have a suspected source of infection? No. Patient's initial sepsis screen is negative. Risk Assessment: Do you want to hurt yourself or someone else? Patient reports no desire to harm self or others. Onset of symptoms was January 24, 2025. 16:29 Method Of Arrival: Ambulatory ll1 16:29 Acuity: ALVARO 4 ll1 Triage Assessment: 16:29 General: Appears uncomfortable, Behavior is calm, cooperative, appropriate for age. ll1 Pain: Complains of pain in R shoulder Quality of pain is described as aching. Musculoskeletal: Reports pain in R shoulder. Historical: - Allergies: 16:28 No Known Allergies; ll1 - PMHx: 16:28 Migraine; GERD; Hypertensive disorder; ll1 - PSHx: 16:28 hand surgery; ll1 - Immunization history:: Adult Immunizations up to date. - Social history:: Smoking status: Patient denies any tobacco usage or history of. - Family history:: not pertinent. Screenin:46 [facility] ED Fall Risk Assessment (Adult) History of falling in the last 3 months, jb4 including since admission No falls in past 3 months (0 pts) Confusion or Disorientation No (0 pts) Intoxicated or Sedated No (0 pts) Impaired Gait No (0 pts) Mobility Assist Device Used No (0 pt) Altered Elimination No (0 pt) Score/Fall Risk Level 0 - 2 = Low Risk Oriented to surroundings, Maintained a safe environment. Abuse screen: Denies threats or abuse. Nutritional screening: No deficits noted. Tuberculosis screening: No symptoms or risk factors identified. Assessment: 17:46 Reassessment: Patient appears in no apparent distress at this time. Patient and/or jb4 family updated on plan of care and expected duration. Pain level reassessed. Patient is alert, oriented x 3, equal unlabored respirations, skin warm/dry/pink. Vital Signs: 16:29 BP 140 / 98; Pulse 108; Resp 17; Temp 98; Pulse Ox 100% on R/A; Weight 61.23 kg; Height ll1 5 ft. 1 in. ; Pain 8/10; 16:29 Body Mass Index 25.51 (61.23 kg, 154.94 cm) ll1 16:29 Pain Scale: Adult ll1 ED Course: 16:14 Patient arrived in ED. sj2 16:28 Arm band placed on. ll1 16:30 Triage completed. ll1 16:41 Bandar Gaitan MD is Attending Physician. teri 16:43 Karen Allen, SUDHIR is Primary Nurse. ll1 17:29 Blake Mathews MD is Referral Physician. [facility] 17:46 Patient has correct armband on for positive identification. Bed in low position. Call jb4 light in reach. Side rails up X 1. Provided Education on: discharge instructions.. 17:46 No provider procedures requiring assistance completed. Patient did not have IV access jb4 during this emergency room visit. 17:56 Shoulder Right (2 View) XRAY In Process Unspecified. EDMS Administered Medications: 17:38 Drug: Hydrocodone-Acetaminophen PO (7.5 mg-325 mg) 1 tabs PO once Route: PO; jb4 17:46 Follow up: Response: Medication administered at discharge. jb4 Medication: 17:46 VIS not applicable for this client. jb4 Outcome: 17:29 Discharge ordered by . [facility] 17:46 Discharged to home ambulatory, with family, [facility] 17:46 Condition: stable 17:46 Discharge instructions given to patient, Instructed on discharge instructions, follow up and referral plans. no drinking with medication, no driving heavy equipment, medication usage, Demonstrated understanding of instructions, follow-up care, medications, Prescriptions given X 3, 17:47 Patient left the ED. jb4 Signatures: Dispatcher [employer] EDMS Bandar Gaitan MD MD cha Bryson, James RN RN jb4 Karen Allen RN RN ll1 Yasmine Lim [facility]
--- NOTE | 2025-01-25 18:17 | RAD REPORT ---
Exam:Shoulder Right 2+ Views History: Right shoulder pain Findings: Area of sclerosis within the upper scapular near the glenohumeral joint is nonspecific and probably n ot significant.. However, if the patient has clinical symptoms to suggest a fracture. CT could be obtained. Moderate narrowing of the AC joint with small osteophytes. No dislocation
[2025-01-25 18:27] VITALS: BP 140/98; TEMP 98; O2SAT 100
== END 2025-01-25 17:47 | disposition home or self-care (01) ==
LOC: ER 16:11
DX: S46.001A Unspecified injury of muscle(s) and tendon(s) of the rotator cuff of right shoulder, initial encounter (principal); S46.801A Unspecified injury of other muscles, fascia and tendons at shoulder and upper arm level, right arm, initial encounter
CPT/HCPCS: 99283